=== PATIENT | female | born 1970 | race Caucasian/White ===

== ENCOUNTER 2019-07-29 08:47 | Emergency (ER) | payer BC ==
[~2019-07-29] VITALS: Ht 170.2 cm; Wt 67.6 kg
[2019-07-29] MEDS ORDERED: PRILOSEC OTC20 MG PO (08:51)
[2019-07-29] MEDS ORDERED: NAPROSYN500 MG PO (09:39)
[2019-07-29] MEDS ORDERED: MIRALAX119 GM PO (09:39)
[2019-07-29] MEDS ORDERED: NORCO 5-325 TA1 EAC1 PO (09:39)
[2019-07-29] MEDS ORDERED: MEDROLDOSEPACK PO (09:39)
[2019-07-29 09:51] VITALS: BP 133/75
== END 2019-07-29 10:27 | disposition home or self-care (01) ==
LOC: ER 08:47
DX: M54.5 Low back pain (principal)